=== PATIENT | female | born 1975 | race Caucasian/White ===

== ENCOUNTER 2017-08-01 08:54 | Day surgery (SDC) | payer BC, OTHER ==
--- NOTE | 2017-07-31 22:10 | PDGENHP ---
History and Physical History and Physical: Assessment and Plan: 1. Dysmenorrhea Yosvany's symptoms and laboratory workup are suggestive of endometriosis. She has failed conservative management. We reviewed all conservative and surgical options. At the end of our discussion she is interested in scheduling laparoscopy with likely robotic excision of endometriosis. The risks benefits and alternatives were presented and informed consent was obtained. 2. Deep dyspareunia Subjective: Patient ID: Yosvany Vicente is a 41 y.o. female who presents to [facility] for possible endometriosis. CAROLINA Bar is a 41 year-old woman from [place] who presents to [facility] painful menses and infertility. She underwent 2 rounds of in vitro fertilization with 2 embryo transfers without success. She has more recently been under the care of Dr. Geronimo in [place]. His testing is suggestive of pelvic endometriosis which also may explain her dysmenorrhea. Her menses have always been heavy and painful since the age of 14. She feels severe soreness and cramping central in her pelvis. There is no radiation. The discomfort begins 1 day before her menstrual flow. She also has dyspareunia especially if she feels her cervix is being bumped. She has no dyschezia. However she did have a history of 2 years of loose stools beginning when she was with her son. This seemed to resolve when she decreased her high-dose folic acid. She also feels a low-grade discomfort in the bladder area. She has seen [address] Gracia. She is gone to pelvic floor physical therapy. She describes the labor with her son as difficult. She has no symptoms of prolapse. However she does feel abdominal bloating and pelvic heaviness. 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 PastMedicalHistory Past Medical History: Diagnosis Date Allergy to pollen Anemia Depression Dermatologic disease Hx of acne History of infertility Neurologic disorder Raynaud's STD (sexually transmitted disease) HPV Thyroid disease Urinary tract infection Varicella PastSurgicalHistory Past Surgical History: Procedure Laterality Date DILATION AND CURETTAGE OF UTERUS FOOT SURGERY Bilateral KNEE SURGERY Left LASIK CURRENT MEDICATIONS: Current Outpatient Prescriptions Medication Sig ERGOCALCIFEROL, VITAMIN D2, (VITAMIN D2 PO) Take by mouth. [id number] 160 mg iron-1 mg-60 mcg Tab Take by mouth daily. LACTOBACILLUS ACIDOPHILUS (PROBIOTIC PO) metFORMIN (GLUCOPHAGE-XR) 750 mg 24 hr tablet TK 1 T PO QD WITH THE RODRI MEAL omega-3 acid ethyl esters, fish oil, (LOVAZA) 1 gram capsule Take 2 g by mouth 2 times daily. vitamin with hzns-swgkrfdd-wimgv acid (PRENATABS RX) 29 mg iron- 1 mg per tablet Take 1 tablet by mouth daily. S-ADENOSYLMETHIONINE SUL TOSYL (RUDI-E PO) SYNTHROID 50 mcg tablet CLINDAmycin (CLEOCIN T) 1 % lotion Apply topically 2 times daily. DIPHENHYDRAMINE HCL (ANTIHISTAMINE PO) Take by mouth. drospir-eth estra-levomefol Ca (BEYAZ) 3-0.02-0.451 mg (24) Tab Take 1 tablet by mouth daily. fluticasone (FLONASE) 50 mcg/Actuation nasal spray Use 2 sprays in each nostril daily. Max dose = 2 sprays each nostril daily folic acid 400 mcg tablet Take 0.4 mg by mouth daily. levocetirizine (XYZAL) 5 mg tablet Take 5 mg by mouth daily. tretinoin (RETIN-A) 0.1 % cream Apply topically nightly at bedtime. No current facility-administered medications for this visit. ALLERGIES: No known drug allergies I have reviewed, verified and agree with the past medical, surgical, , family, social and ROS history as documented by the RN today. Objective: Vital Signs: Visit Vitals BP 130/74 Pulse 85 Temp 36.7 C (98.1 F) (Temporal Artery) Resp 16 Ht 1.676 m (5' 6") Wt 55.4 kg (122 lb 3.2 oz) SpO2 98% BMI 19.72 kg/m2 Physical Exam Gen: This is an alert, well developed woman in no distress. Neuro: She moves all extremities. Psych: She is appropriate, oriented, with normal affect. Neck: No thyroid enlargement, adenopathy, or tenderness. Lungs: Clear to ascultation, no wheezes or rales. Heart: Regular rate and rhythm without obvious murmurs. Abdomen: Soft, non-tender, without guarding, rebound, or masses. Extremities: No edema or cyanosis. Pelvic: Normal external genitalia. Non-gaping introitus, vagina without discharge, adequately estrogenized, no significant prolapse. Cervix without lesions or discharge. Uterus normal sized, mobile, mildly tender posteriorly. Adnexa non-tender without enlargement. Tender posterior cul-de-sac. No nodules palpable. DATA: I have reviewed the pertinent medical records and e-mail from Dr. Geronimo.. TIME/COMMUNICATION: I personally spent a total of 60 minutes. Of that 45 minutes was counseling/ coordination of patient's care. See my note above for details. John Freeman MD Board Certified Female Pelvic Medicine and Reconstructive Surgery Director of Minimally Invasive Gynecologic Surgery, [facility] Surgeon in Minimally Invasive Gynecologic Surgery [facility] Surgeon in Robotic Surgery
[2017-08-01] MEDS ORDERED: PHENAZOPYRIDINE HCL 100 MG TAB PO ONE (09:08)
[2017-08-01] MEDS ORDERED: ceFAZolin 2 GM/DEXTROSE 100 ML IV ONE (09:08)
[2017-08-01] MEDS ORDERED: MIDAZOLAM 2 MG/2 ML VIAL IVP ONE (09:26)
--- NOTE | 2017-08-01 09:27 | PDANEPAE ---
ANE History of Present Illness 41 yo female with fertility issues now for endometriosis ablations. ANE Past Medical History - Cardiovascular History Hx Hypertension: No Hx Arrhythmias: No Hx Chest Pain: No Hx Coronary Artery / Peripheral Vascular Disease: No Hx CHF / Valvular Disease: No Hx Palpitations: No - Pulmonary History Hx COPD: No Hx Asthma/Reactive Airway Disease: No Hx Recent Upper Respiratory Infection: No Hx Oxygen in Use at Home: No Hx Sleep Apnea: No Sleep Apnea Screening Result - Last Documented: Negative - Neurologic History Hx Cerebrovascular Accident: No Hx Seizures: No Hx Dementia: No - Endocrine History Hx Diabetes: No Hypothyroid: Yes Endocrine History Comment: HYPOTHYROID - Renal History Hx Renal Disorders: Yes Renal History Comment: URGE/STRESS INTERMITTENT INCONT - Liver History Hx Hepatic Disorders: No - Neurological & Psychiatric Hx Hx Neurological and Psychiatric Disorders: No - Cancer History Hx Cancer: No - Congenital Disorder History Hx Congenital Disorders: No - GI History Hx Gastrointestinal Disorders: No - Other Health History Other Health History: POLYCYSTIC OVARIAN SYNDROME. FLU SHOT 07/25/2017 - Chronic Pain History Chronic Pain: Yes (PELVIC PAIN) - Surgical History Prior Surgeries: D&C MISSED AB. IVF. LT SCOPE. SAUL FOOT RECONSTRUCTION WITH RESIDUAL HARDWARE ANE Review of Systems Review of Systems: No URI/fever x2 weeks. - Exercise capacity METS (RN): 5 METS - Systems Constitutional: Reports: no symptoms ANE Patient History - Allergies Allergies/Adverse Reactions: No Known Allergies Allergy (Unverified 07/26/17 16:02) - Home Medications Home medications: home medication list seen and reviewed Home Medications: Herbal Drugs DAILY 07/26/17 [Last Taken 07/31/17 08:00] Levothyroxine DAILY 07/26/17 [Last Taken 08/01/17 07:15] Metformin HCl ER BID 07/26/17 [Last Taken 07/31/17 19:00] Mcgregor 3 1,000 mg Softgel DAILY 07/26/17 [Last Taken 07/27/17] DAILY 07/26/17 [Last Taken 07/27/17] - NPO status NPO Status: no food or drink >8 hours NPO Since - Liquids (Date): 08/01/17 NPO Since - Liquids (Time): 07:15 (water with apple juice) - Anes Hx Anes Hx: no prior problems - Smoking Hx Smoking Status: Never smoked - Family Anes Hx Family Anes Hx: neg - N/A ANE Labs/Vital Signs - Vital Signs Vital Signs: reviewed preoperatively; see RN documention for details Height: 167.64 cm Weight: 54.431 kg ANE Physical Exam - Airway Neck exam: FROM Mallampati Score: Class 2 Mouth exam: normal dental/mouth exam - Pulmonary Pulmonary: clear to auscultation - Cardiovascular Cardiovascular: regular rate and rhythym, no murmur, rub, or gallop ANE Anesthesia Plan Anesthesia Plan: general endotracheal anesthesia
[2017-08-01] MEDS ORDERED: LR 1,000 ML IV ONE (09:40)
[2017-08-01] MEDS ORDERED: LIDOCAINE 1% 2 ML INJ ID PRN (09:40)
--- NOTE | 2017-08-01 09:57 | PDHPUP ---
History & Physical Update H&P update statement: This history and physical update is based on an assessment of the patient which was completed after admission or registration (within 24 hours), but prior to the surgery/procedure. H&P update: H&P reviewed & patient examined, no change in patient's condition since H&P completed
[2017-08-01] MEDS ORDERED: LIDOCAINE 2% 5 ML SDV ONE (10:19)
[2017-08-01] MEDS ORDERED: DEXAMETHASONE 4 MG/ML VIAL ONE (10:19)
[2017-08-01] MEDS ORDERED: PROPOFOL/EMULSION 500 MG/50 ML BOTTLE IV ONE ×2 (10:19)
[2017-08-01] MEDS ORDERED: fentaNYL 100 MCG/2 ML INJ ONE ×3 (10:19→12:33)
[2017-08-01] MEDS ORDERED: ROCURONIUM 100 MG/10 ML VIAL ONE (10:19)
[2017-08-01] MEDS ORDERED: BUPIVACAINE/EPI 0.5% 30 ML SDV ONE (10:32)
[2017-08-01] MEDS ORDERED: ONDANSETRON 4 MG/2 ML VIAL ONE (10:43)
[2017-08-01] MEDS ORDERED: KETOROLAC 30 MG/1 ML SDV ONE (11:36)
[2017-08-01] MEDS ORDERED: HYDROCODONE/APAP 5/325 TAB PO PRN (11:49)
[2017-08-01] MEDS ORDERED: LR 500 ML IV PRN (11:49)
[2017-08-01] MEDS ORDERED: ALBUTEROL 3 ML DEYVIAL IH PRN (11:49)
[2017-08-01] MEDS ORDERED: ACETAMINOPHEN 500 MG TAB PO PRN (11:49)
[2017-08-01] MEDS ORDERED: PROMETHAZINE HCL 25 MG/ML INJ IVP PRN (11:49)
[2017-08-01] MEDS ORDERED: NALOXONE HCL 0.4 MG/ML INJ IVP PRN (11:49)
[2017-08-01] MEDS ORDERED: SUGAMMADEX SODIUM 200 MG/2 ML VIAL IVP ONE (11:52)
--- NOTE | 2017-08-01 12:24 | POSTANESTH ---
Post Anesthetic Evaluation Cardiovascular Status: Normal, Stable Respiratory Status: Normal, Stable Level of Consciousness/Mental Status: Can Participate in Eval, Moderately Sleepy Pain Control: Adequate, Prn Tx Ordered Nausea/Vomiting Control: Adequate, Prn Tx Ordered Complications Possibly Related to Anesthesia: None Noted
[2017-08-01] MEDS: fentaNYL 100 MCG/2 ML INJ IVP PRN ×4 (12:36→13:15)
[2017-08-01] MEDS ORDERED: ACETAMINOPHEN 325 MG TAB ONE ×2 (13:01→13:20)
[2017-08-01] MEDS ORDERED: ACETAMINOPHEN 325 MG TAB PO PRN (13:16)
[2017-08-01] MEDS ORDERED: TAPENTADOL HCL 50 MG TAB PO ONE (13:47)
[2017-08-01] MEDS ORDERED: PROMETHAZINE HCL 25 MG SUPPR PR ONE (13:47)
[2017-08-01 16:08] VITALS: BP 110/66; PULSE 70; RESP 16; TEMP 97.9; O2SAT 96
--- NOTE | 2017-08-02 18:57 | GOP ---
[f rep st] OPERATIVE REPORT DATE OF OPERATION: 08/01/2017 SURGEON: John Freeman MD HAY RAKE OPERATOR: GIOVANI Hensley. ANESTHESIA: General. PREOPERATIVE DIAGNOSIS: 1. Dysmenorrhea. 2. Endometriosis. 3. Bladder pain syndrome. POSTOPERATIVE DIAGNOSIS: 1. Dysmenorrhea. 2. Endometriosis. 3. Bladder pain syndrome. PROCEDURE PERFORMED: 1. Robotic excision of endometriosis in the posterior cul-de-sac and bilateral ovarian fossae. 2. Left ureterolysis. 3. Bilateral ovarian pexy. 4. Myomectomy. 5. Cystoscopy. FINDINGS: SPECIMENS: 1. Pelvic peritoneum with endometriosis. 1. Small uterine fibroid. 2. ESTIMATED BLOOD LOSS: Scant. DESCRIPTION OF PROCEDURE: Patient was taken to the operating room where she was identified. General anesthesia was administered and found to be adequate. She was placed in the lithotomy position in t he normal sterile fashion. A Hulka tenaculum was placed in the uterus for manipulation. A Tillman cat heter was then placed. A 1 cm infraumbilical incision was made with a scalpel. The Veress needle with the CO2 gas flowing w as advanced into the peritoneal cavity. The abdomen was then insufflated with carbon dioxide gas. T he 12 mm trocar, followed by the laparoscope were then inserted. The upper abdomen was unremarkable. No evidence of endometriosis was seen on either diaphragm, liver or stomach. There was 1 area of a dhesions in the right upper abdomen to the top of the ascending colon. No endometriosis was seen at the base. Two lateral ports were placed in the right and 1 in the left under direct visualization. She then was placed in Trendelenburg position and the da Viktoriya robot docked on the left side. The in struments were then brought into the abdominal cavity under direct visualization. Within the pelvis endometriosis was seen in the posterior cul-de-sac with a large peritoneal window u nderneath the cervix. There was a second window just medial to the left uterosacral ligament. There was endometriosis in both ovarian fossae overlying the ureters. There was a small area of endometri osis on the left ovary. The right ovary had a follicular cyst. The patient had 2 very small subsero yash fibroids. Attention was first turned to the posterior cul-de-sac endometriosis. The entire cul-de-sac peritone um from the distal rectum up to the cervix, and bilaterally out to both uterosacral ligaments was com pletely excised. The small area of superficial endometriosis on the left ovary was fulgurated. A bi lateral ovarian pexy was then performed by attaching the ovaries to the ipsilateral round ligaments. A left ureterolysis was then required to treat the endometriosis in the left ovarian fossa. The per itoneum at the pelvic brim was incised. The ureter was gently dissected free. It was then lateraliz ed, off the overlying peritoneum and endometriosis all the way down to the bladder. Once this was accomplished, the entire peritoneum and the ovarian fossa, all the way down to the cervix wa s completely excised. The endometriosis in the distal right ovarian fossa was then completely excise d. One of the small uterine fibroids was excised, which was more subserosal. The pelvis was then copiously irrigated with sterile saline. Hemostasis was present. Two sheets of Interceed were placed in the lateral aspects of the pelvis to try to minimize postoperative adhesion formation. Cystoscopy was then performed. Both ureters had vigorous jets of urine. There was no evidence of bl adder nor urethral injury seen. No obvious pathology was seen within the bladder. Anesthesia was re versed, and the patient taken the PACU awake, in stable condition. COMPLICATIONS: None. DISPOSITION: Patient stable to PACU. /[id number]/MODL
== END 2017-08-01 15:43 | disposition home or self-care (01) ==
LOC: FSGY 08:54
PROVIDERS: ATTEND Obstetrics & Gynecology
PROC: 0US24ZZ Reposition Bilateral Ovaries, Percutaneous Endoscopic Approach (ICD-10-PCS; principal; 2017-08-01 10:15)
PROC: 0UBF4ZX Excision of Cul-de-sac, Percutaneous Endoscopic Approach, Diagnostic (ICD-10-PCS; principal; 2017-08-01 10:15)
PROC: 0UB94ZX Excision of Uterus, Percutaneous Endoscopic Approach, Diagnostic (ICD-10-PCS; principal; 2017-08-01 10:15)
PROC: 0UB24ZX Excision of Bilateral Ovaries, Percutaneous Endoscopic Approach, Diagnostic (ICD-10-PCS; principal; 2017-08-01 10:15)
PROC: 0UB44ZX Excision of Uterine Supporting Structure, Percutaneous Endoscopic Approach, Diagnostic (ICD-10-PCS; principal; 2017-08-01 10:15)
PROC: 8E0WXCZ Robotic Assisted Procedure of Trunk Region (ICD-10-PCS; principal; 2017-08-01 10:15)
PROC: 0U514ZZ Destruction of Left Ovary, Percutaneous Endoscopic Approach (ICD-10-PCS; principal; 2017-08-01 10:15)
DX: N80.3 Endometriosis of pelvic peritoneum (principal); N94.6 Dysmenorrhea, unspecified; D25.9 Leiomyoma of uterus, unspecified; R39.89 Other symptoms and signs involving the genitourinary system; N94.12 Deep dyspareunia; E28.2 Polycystic ovarian syndrome; E03.9 Hypothyroidism, unspecified
CPT/HCPCS: 58545; 58662; 58679; C1765; J0690; J1100; J1885; J2250; J2405; J2704; J3010